=== PATIENT | male | born 1990 | race Caucasian/White ===

== ENCOUNTER 2021-07-24 17:17 | Emergency (ER) | payer OTHER ==
[2021-07-24] MEDS ORDERED: AMOX TR-K CLV1 EAC4 PO (20:10)
== END 2021-07-24 20:15 | disposition home or self-care (01) ==
LOC: ER1 17:17
DX: S61.251A Open bite of left index finger without damage to nail, initial encounter (principal); S61.211A Laceration without foreign body of left index finger without damage to nail, initial encounter; F17.210 Nicotine dependence, cigarettes, uncomplicated; W54.0XXA Bitten by dog, initial encounter
CPT/HCPCS: 12002; 73140; 99283